=== PATIENT | female | born 1965 | race African-American/Black ===

== ENCOUNTER 2021-07-15 15:29 | Emergency (ER) | payer MEDICAID ==
[~2021-07-15] VITALS: Ht 167.6 cm; Wt 66.0 kg
[~2021-07-15 15:29] MED LIST: AMLO10TA4 PO; AMLO10TA80 MT; AMOX-424 MT; CLOP75TA4 PO; DOXY100C2 MT; HYDR100T26 MT; NICO-645 TP
[2021-07-15] MEDS ORDERED: ACETAMINOPHEN 325MG TABLET PO ONE (16:30)
[2021-07-15 18:29] LABS: BASOPHILS % 0.9 % (0.0-2.0); CLARITY URINE CLEAR (CLEAR); COLOR URINE YELLOW (YELLOW); HEMATOCRIT. 36.3 % (36.0-48.0); KETONES URINE 1+ (NEGATIVE); LEUKOCYTE ESTERASE URINE 2+ (NEGATIVE); MEAN CORPUSCULAR HEMOGLOBIN 26.3 pg (28.0-32.0); MEAN CORPUSCULAR VOLUME 79.4 fL (81.0-99.0); MEAN PLATELET VOLUME 8.5 fl (7.4-10.4); MONOCYTES % 10.5 % (2.0-8.0); NEUTROPHILS % 55.6 % (40.0-76.0); NITRITE URINE NEGATIVE (NEGATIVE); OCCULT BLOOD URINE NEGATIVE (NEGATIVE); PH URINE 5.5 (4.5-8.0); PLATELET 244 x1000/uL (130-400); PROTEIN URINE 1+ (NEGATIVE); RED BLOOD CELL COUNT 4.57 mill/uL (4.2-5.4); RED CELL DISTRIBUTION WIDTH 15.3 % (11.6-14.6); SPECIFIC GRAVITY URINE 1.029 (1.005-1.030)
[2021-07-15 18:31] LABS: CHLORIDE 111 mEq/L (98-107)
[2021-07-15 18:34] LABS: ETHANOL BLOOD < 10 mg/dL
[2021-07-15 18:46] LABS: CANNABINOID URINE SCREEN PRESUMTIVE POSITIVE (NEGATIVE); PHENCYCLIDINE URINE SCREEN NEGATIVE (NEGATIVE)
[2021-07-15 18:47] LABS: *AMPHETAMINES SCREEN URINE NEGATIVE (NEGATIVE); *BARBITURATES SCREEN URINE NEGATIVE (NEGATIVE); *BENZODIAZEPINES SCREEN URINE NEGATIVE (NEGATIVE); *COCAINE SCREEN URINE NEGATIVE (NEGATIVE); METHADONE URINE SCREEN NEGATIVE (NEGATIVE); OPIATES URINE SCREEN NEGATIVE (NEGATIVE)
[2021-07-15] MEDS ORDERED: CEPH250C2 MT (19:05)
[2021-07-15 19:41] VITALS: BP 110/78
== END 2021-07-15 19:43 | disposition home or self-care (01) ==
LOC: ER 15:29
DX: F22 Delusional disorders (principal); N39.0 Urinary tract infection, site not specified; R79.89 Other specified abnormal findings of blood chemistry; F12.10 Cannabis abuse, uncomplicated; E78.00 Pure hypercholesterolemia, unspecified; I10 Essential (primary) hypertension; F20.9 Schizophrenia, unspecified; Z86.73 Personal history of transient ischemic attack (TIA), and cerebral infarction without residual deficits; Z98.51 Tubal ligation status; Z79.899 Other long term (current) drug therapy
CPT/HCPCS: 36415; 80053; 80305; 80320; 81003; 81025; 85025; 99283; G0480

== ENCOUNTER 2021-07-21 08:09 | Emergency (ER) | payer MEDICAID ==
[~2021-07-21] VITALS: Ht 162.6 cm; Wt 53.0 kg
[~2021-07-21 08:09] MED LIST changes: +CEPH250C2 MT
[2021-07-21 11:00] LABS: CLARITY URINE CLEAR (CLEAR); COLOR URINE YELLOW (YELLOW); KETONES URINE 1+ (NEGATIVE); LEUKOCYTE ESTERASE URINE 2+ (NEGATIVE); NITRITE URINE NEGATIVE (NEGATIVE); OCCULT BLOOD URINE NEGATIVE (NEGATIVE); PROTEIN URINE TRACE (NEGATIVE); SPECIFIC GRAVITY URINE 1.026 (1.005-1.030)
[2021-07-21 11:04] LABS: CHLORIDE 109 mEq/L (98-107)
[2021-07-21 11:06] LABS: BASOPHILS % 0.5 % (0.0-2.0); EOSINOPHILS % 0.7 % (0.0-5.0); HEMATOCRIT. 41.2 % (36.0-48.0); HEMOGLOBIN. 13.4 g/dL (12.0-16.0); LYMPHOCYTES % 30.7 % (20.0-50.0); MEAN CORPUSCULAR HEMOGLOBIN 26.3 pg (28.0-32.0); MEAN CORPUSCULAR VOLUME 80.6 fL (81.0-99.0); MEAN PLATELET VOLUME 8.7 fl (7.4-10.4); MONOCYTES % 6.9 % (2.0-8.0); NEUTROPHILS % 61.2 % (40.0-76.0); PLATELET 249 x1000/uL (130-400); RED BLOOD CELL COUNT 5.11 mill/uL (4.2-5.4)
[2021-07-21 11:09] LABS: ETHANOL BLOOD < 10 mg/dL
[2021-07-21 11:44] LABS: *AMPHETAMINES SCREEN URINE NEGATIVE (NEGATIVE); *BARBITURATES SCREEN URINE NEGATIVE (NEGATIVE); *BENZODIAZEPINES SCREEN URINE NEGATIVE (NEGATIVE); *COCAINE SCREEN URINE NEGATIVE (NEGATIVE); CANNABINOID URINE SCREEN PRESUMTIVE POSITIVE (NEGATIVE); METHADONE URINE SCREEN NEGATIVE (NEGATIVE); OPIATES URINE SCREEN NEGATIVE (NEGATIVE)
[2021-07-21 11:45] LABS: PHENCYCLIDINE URINE SCREEN NEGATIVE (NEGATIVE)
[2021-07-21 12:00] VITALS: BP 147/81
== END 2021-07-21 12:00 | disposition home or self-care (01) ==
LOC: ER 08:27
DX: F20.9 Schizophrenia, unspecified (principal); I10 Essential (primary) hypertension; E78.00 Pure hypercholesterolemia, unspecified; Z86.73 Personal history of transient ischemic attack (TIA), and cerebral infarction without residual deficits; Z91.14 Patient's other noncompliance with medication regimen; Z98.51 Tubal ligation status
CPT/HCPCS: 36415; 80053; 80305; 80307; 80320; 80329; 81003; 85025; 93970; 99284; Z7610; G0480

== ENCOUNTER 2021-07-26 20:36 | Emergency (ER) | payer MEDICAID ==
[~2021-07-26] VITALS: Ht 162.6 cm; Wt 63.0 kg
[2021-07-26 21:17] VITALS: BP 194/103
[2021-07-26] MEDS: MAGNESIUM/ALUMINUM HYDROXIDE/SIMETHICONE 30ML UDC PO STA ×2 (21:54→22:57)
[2021-07-26 22:45] LABS: CLARITY URINE CLEAR (CLEAR); COLOR URINE YELLOW (YELLOW); KETONES URINE NEGATIVE (NEGATIVE); LEUKOCYTE ESTERASE URINE 2+ (NEGATIVE); NITRITE URINE NEGATIVE (NEGATIVE); OCCULT BLOOD URINE NEGATIVE (NEGATIVE); PH URINE 7.5 (4.5-8.0); PROTEIN URINE NEGATIVE (NEGATIVE); SPECIFIC GRAVITY URINE 1.022 (1.005-1.030)
[2021-07-26] MEDS: CLONIDINE 0.1MG TABLET PO ONE (22:56)
[2021-07-26] MEDS: ONDANSETRON 4MG ODT PO STA (22:57)
[2021-07-26] MEDS: ACETAMINOPHEN 325MG TABLET PO STA (22:57)
[2021-07-26 22:58] LABS: *BENZODIAZEPINES SCREEN URINE NEGATIVE (NEGATIVE); *COCAINE SCREEN URINE NEGATIVE (NEGATIVE); CANNABINOID URINE SCREEN PRESUMTIVE POSITIVE (NEGATIVE); METHADONE URINE SCREEN NEGATIVE (NEGATIVE); OPIATES URINE SCREEN NEGATIVE (NEGATIVE); PHENCYCLIDINE URINE SCREEN NEGATIVE (NEGATIVE)
[2021-07-26 23:00] LABS: *AMPHETAMINES SCREEN URINE NEGATIVE (NEGATIVE); *BARBITURATES SCREEN URINE NEGATIVE (NEGATIVE)
[2021-07-26 23:17] LABS: BASOPHILS % 0.4 % (0.0-2.0); HEMATOCRIT. 38.5 % (36.0-48.0); HEMOGLOBIN. 12.6 g/dL (12.0-16.0); LYMPHOCYTES % 21.9 % (20.0-50.0); MEAN CORPUSCULAR HEMOGLOBIN 26.3 pg (28.0-32.0); MEAN CORPUSCULAR VOLUME 80.1 fL (81.0-99.0); MEAN PLATELET VOLUME 8.3 fl (7.4-10.4); MONOCYTES % 10.9 % (2.0-8.0); NEUTROPHILS % 65.8 % (40.0-76.0); PLATELET 220 x1000/uL (130-400); RED BLOOD CELL COUNT 4.81 mill/uL (4.2-5.4); RED CELL DISTRIBUTION WIDTH 15.8 % (11.6-14.6)
[2021-07-26 23:22] LABS: CHLORIDE 110 mEq/L (98-107)
[2021-07-26 23:27] LABS: ETHANOL BLOOD < 10 mg/dL
[2021-07-27] MEDS ORDERED: CEPH500C2 MT (00:58)
[2021-07-27] MEDS: LIDOCAINE HCL 1% 20ML VIAL (Pyxis) INJ INFIL ONE (01:20)
[2021-07-27] MEDS: CEFTRIAXONE SODIUM 1 G/VIAL IM ONE (01:20)
== END 2021-07-27 01:22 | disposition home or self-care (01) ==
LOC: ER 20:36
DX: N39.0 Urinary tract infection, site not specified (principal); F12.10 Cannabis abuse, uncomplicated; I10 Essential (primary) hypertension; Z79.899 Other long term (current) drug therapy; Z86.59 Personal history of other mental and behavioral disorders
CPT/HCPCS: 36415; 71045; 74176; 80053; 80305; 80307; 80320; 80329; 81003; 85025; 93005; 99285; Q0162; G0480

== ENCOUNTER 2021-07-30 04:56 | Emergency (ER) | payer MEDICAID ==
[~2021-07-30] VITALS: Ht 162.6 cm; Wt 63.0 kg
[~2021-07-30 04:56] MED LIST changes: +CEPH500C2 MT
[2021-07-30 06:53] LABS: CLARITY URINE CLEAR (CLEAR); COLOR URINE YELLOW (YELLOW); KETONES URINE TRACE (NEGATIVE); LEUKOCYTE ESTERASE URINE TRACE (NEGATIVE); NITRITE URINE NEGATIVE (NEGATIVE); OCCULT BLOOD URINE NEGATIVE (NEGATIVE); PH URINE 6.5 (4.5-8.0); PROTEIN URINE TRACE (NEGATIVE); SPECIFIC GRAVITY URINE 1.028 (1.005-1.030)
[2021-07-30] MEDS ORDERED: TOPUD PO (07:06)
[2021-07-30 08:18] VITALS: BP 138/85
== END 2021-07-30 08:20 | disposition home or self-care (01) ==
LOC: ER 05:10
DX: R10.9 Unspecified abdominal pain (principal); F20.9 Schizophrenia, unspecified; I10 Essential (primary) hypertension; N39.0 Urinary tract infection, site not specified
CPT/HCPCS: 81003; 99283

== ENCOUNTER 2021-10-22 08:10 | Emergency (ER) | payer MEDICAID ==
[~2021-10-22] VITALS: Ht 154.9 cm; Wt 68.0 kg
[~2021-10-22 08:10] MED LIST changes: +CLOP-31 PO; -CLOP75TA4 PO; -DOXY100C2 MT; +DOXY100C5 MT; +TOPUD PO
[2021-10-22] MEDS ORDERED: RISP2TAB85 MT (08:29)
[2021-10-22 08:38] VITALS: BP 150/71
== END 2021-10-22 08:39 | disposition home or self-care (01) ==
LOC: ER 08:10
DX: Z76.0 Encounter for issue of repeat prescription (principal); I10 Essential (primary) hypertension; F20.9 Schizophrenia, unspecified
CPT/HCPCS: 99282